=== PATIENT | female | born 1945 | race Caucasian/White ===

== ENCOUNTER → 2016-09-07 | Outpatient (CLI) | payer MEDICARE ==
--- NOTE | 2016-09-07 13:02 | XR ---
EXAMINATION TYPE: XR chest 2V DATE OF EXAM: 09/07/2016 11:34 AM COMPARISON: NONE TECHNIQUE: PA and lateral views submitted. HISTORY: Cough FINDINGS: The lungs are clear and there is no pneumothorax, pleural effusion, or focal pneumonia. Hypertrophic and degenerative change of the spine. Atherosclerotic change aorta. Hyperinflation suggests COPD. Bi apical pleural thickening. IMPRESSION: 1. No acute process. Correlate for COPD and pulmonary arterial hypertension.
== END | disposition home or self-care (01) ==
LOC: RADXRMAIN 11:03
PROVIDERS: ATTEND Family Medicine
DX: R05 Cough (principal); R91.8 Other nonspecific abnormal finding of lung field
CPT/HCPCS: 71020

== ENCOUNTER → 2018-01-10 | Outpatient (CLI) | payer MEDICARE ==
--- NOTE | 2018-01-10 11:12 | XR ---
EXAMINATION TYPE: XR Hip Complete RT DATE OF EXAM: 01/10/2018 COMPARISON: NONE HISTORY: Pain TECHNIQUE: 2 views submitted FINDINGS: There is no evidence of erosive change or acute fracture. There is axial narrowing of the joint space . Calcification along the femoral heads likely is related to chronic arthropathy or acetabular chroni c labral tear. IMPRESSION: 1. Arthropathy correlate for osteoarthritis. Follow-up MRI could BE obtained as clinically warranted. .
== END | disposition home or self-care (01) ==
LOC: RADUSMAIN 10:50
PROVIDERS: ATTEND Family Medicine
DX: M12.9 Arthropathy, unspecified (principal)
CPT/HCPCS: 73502

== ENCOUNTER → 2019-01-10 | Outpatient (CLI) | payer MEDICARE ==
--- NOTE | 2019-01-15 14:03 | MM ---
Reason for exam: screening (asymptomatic). Last mammogram was performed 11 years and 1 month ago. History: Patient is postmenopausal. Family history of breast cancer in aunt at age 86. Benign excisional biopsy of the right breast, 2002. Benign excisional biopsy of the right breast, 1995. Took estrogen for 14 years. Took progesterone for 14 years. Physical Findings: A clinical breast exam by your physician is recommended on an annual basis and results should be correlated with mammographic findings. MG 3D Screening Mammo W/Cad Bilateral CC and MLO view(s) were taken. Prior study comparison: July 02, 2015, mammogram. November 27, 2007, bilateral digital screening mammogram. The breast tissue is heterogeneously dense. This may lower the sensitivity of mammography. Nodular asymmetry middle depth superior left breast likely an island of fibroglandular tissue. 6 month follow up recommended. ASSESSMENT: Probably benign, BI-RAD 3 RECOMMENDATION: Follow-up diagnostic mammogram of the left breast in 6 months. SUDEEP
== END | disposition home or self-care (01) ==
LOC: RADMAMWWP 13:02
PROVIDERS: ATTEND Obstetrics & Gynecology
DX: Z12.31 Encounter for screening mammogram for malignant neoplasm of breast (principal)
CPT/HCPCS: 77063; 77067

== ENCOUNTER → 2019-08-06 | Outpatient (CLI) | payer MEDICARE ==
--- NOTE | 2019-08-07 08:24 | MM ---
Reason for exam: follow-up at short interval from prior study. Last mammogram was performed 7 months ago. History: Patient is postmenopausal. Family history of breast cancer in aunt at age 86. Benign excisional biopsy of the right breast, 2002. Benign excisional biopsy of the right breast, 1995. Took estrogen for 14 years. Took progesterone for 14 years. Physical Findings: Nurse did not find any significant physical abnormalities on exam. MG 3D Diag Mammo W/Cad LT CC and MLO view(s) were taken of the left breast. Prior study comparison: January 10, 2019, bilateral MG 3d screening mammo w/cad. July 02, 2015, mammogram. The breast tissue is heterogeneously dense. This may lower the sensitivity of mammography. Benign appearing calcifications in the left breast. No suspicious abnormality. Left superior asymmetry is similar to the prior. These results were verbally communicated with the patient and result sheet given to the patient on 08/06/19. ASSESSMENT: Probably benign, BI-RAD 3 RECOMMENDATION: Follow-up diagnostic mammogram of both breasts in 6 months.
== END | disposition home or self-care (01) ==
LOC: RADMAMWWP 15:18
PROVIDERS: ATTEND Obstetrics & Gynecology
DX: R92.8 Other abnormal and inconclusive findings on diagnostic imaging of breast (principal)
CPT/HCPCS: 77065; G0279; 77061

== ENCOUNTER → 2021-11-11 | Outpatient (CLI) | payer MEDICARE ==
--- NOTE | 2021-11-12 09:44 | CA ---
Transthoracic Echo Report Name: Sydney Oliveros Age: 76 Gender: F : 1945 Exam Date: 11/11/2021 14:04 Exam Location: [facility] Ht (in): 65 Wt (lb): 115 Ordering Physician: Melvin Choi DO Attending/Referring Phys: Survey Coordinator Caren San RDCS Procedure CPT: Indications: I20.9 Angina Cardiac Hx: Technical Quality: Contrast 1: Total Dose (mL): Contrast 2: Total Dose (mL): MEASUREMENTS (Male / Female) Normal Values 2D ECHO LV Diastolic Diameter PLAX 3.3 cm 4.2 - 5.9 / 3.9 - 5.3 cm LV Systolic Diameter PLAX 2.4 cm IVS Diastolic Thickness 1.0 cm 0.6 - 1.0 / 0.6 - 0.9 cm LVPW Diastolic Thickness 1.0 cm 0.6 - 1.0 / 0.6 - 0.9 cm LV Relative Wall Thickness 0.6 RV Internal Dim ED PLAX 2.7 cm LA Volume 21.0 cm 18 - 58 / 22 - 52 cm M-MODE Aortic Root Diameter MM 2.8 cm LA Systolic Diameter MM 3.0 cm LA Ao Ratio MM 1.1 AV Cusp Separation MM 1.8 cm DOPPLER AV Peak Velocity 120.3 cm/s AV Peak Gradient 5.8 mmHg LVOT Peak Velocity 115.3 cm/s LVOT Peak Gradient 5.3 mmHg MV Area PHT 2.7 cm Mitral E Point Velocity 67.5 cm/s Mitral A Point Velocity 72.4 cm/s Mitral E to A Ratio 0.9 MV Deceleration Time 284.2 ms MV E' Velocity 4.4 cm/s Mitral E to MV E' Ratio 15.5 TR Peak Velocity 236.0 cm/s TR Peak Gradient 22.3 mmHg Right Ventricular Systolic Press 26.8 mmHg FINDINGS Left Ventricle Mildly increased septal wall thickness. Mildly increased posterior wall thickness. Left ventricular ejection fraction is estimated at 55-60 % . normal left ventricular wall motion. Normal left ventricular diastolic filling pattern. Right Ventricle The right ventricle is normal in size and function. Right Atrium The right atrium is normal in size. Left Atrium The left atrium is normal in size. Mitral Valve Structurally normal mitral valve without significant stenosis or prolapse. Mild mitral regurgitation. Aortic Valve Structurally normal aortic valve without significant sclerosis or stenosis. There is no aortic regurgitation. Tricuspid Valve Structurally normal tricuspid valve without significant stenosis, mild tricuspid regurgitation. Pulmonary artery systolic pressure is normal. Pulmonic Valve Structurally normal pulmonic valve without significant stenosis. There is no pulmonic regurgitation. Pericardium Normal pericardium without effusion. Aorta Normal aortic root dimension. CONCLUSIONS #1. Mild concentric left ventricular hypertrophy. #2. Normal atrial sizes. #3. Mild mitral regurgitation and mild tricuspid regurgitation. #4. No pericardial effusion Previewed by: Dr. Cortney Cervantes MD (Electronically Signed) Final Date: 12 November 2021 09:43
== END | disposition home or self-care (01) ==
LOC: RADECHMAIN 13:53
PROVIDERS: ATTEND Family Medicine
DX: I08.1 Rheumatic disorders of both mitral and tricuspid valves (principal)
CPT/HCPCS: 93306

== ENCOUNTER → 2022-07-08 | Outpatient (CLI) | payer MEDICARE ==
--- NOTE | 2022-07-08 13:04 | XR ---
EXAMINATION TYPE: XR Hip Complete LT DATE OF EXAM: 07/08/2022 COMPARISON: NONE HISTORY: Pain TECHNIQUE: 2 views submitted FINDINGS: There is no evidence of erosive change or acute fracture. IMPRESSION: 1. No evidence of acute fracture or dislocation.
--- NOTE | 2022-07-08 13:08 | XR ---
EXAMINATION TYPE: XR femur LT DATE OF EXAM: 07/08/2022 COMPARISON: NONE HISTORY: Pain TECHNIQUE: 4 views submitted FINDINGS: Osseous structures intact. No fracture. No dislocation. Mild cystic change involving the he ad of the femur. There is arthropathy with chondrocalcinosis involving the knee. Vascular calcificati ons noted IMPRESSION: 1. No acute fracture or dislocation. Chondrocalcinosis and arthropathy of the knee joint correlate fo r osteoarthritis versus deposition arthropathy. 2. Question tiny cystic changes again noted involving the femoral head. Could be post arthritic. If t here is concern for early osteonecrosis correlate with MRI.
== END | disposition home or self-care (01) ==
LOC: RADXRMAIN 12:04
PROVIDERS: ATTEND Family Medicine
DX: M25.552 Pain in left hip (principal); M79.652 Pain in left thigh
CPT/HCPCS: 73502

== ENCOUNTER → 2022-08-11 | Outpatient (CLI) | payer MEDICARE ==
--- NOTE | 2022-08-12 04:36 | MR ---
EXAMINATION TYPE: MR hip LT wo con DATE OF EXAM: 08/11/2022 COMPARISON: None HISTORY: Left hip pain. Multiplanar multiecho imaging of the pelvis and left hip performed with no contrast. The proximal left femur appears intact. The acetabula appear intact. No evidence of pelvic mass. Blad issac distends smoothly. No sign of free fluid in the pelvis. The sacroiliac joints appear intact. Ther e is some subcutaneous edema around the abdomen and pelvis. There is increased subcutaneous fluid sig nal lateral to the greater trochanter of the left femur. There is some mild 3 x 1 cm area of fluid signal adjacent to the greater trochanter of the left femur . No evidence of avascular necrosis. No evidence of a soft tissue mass. IMPRESSION: There is some fluid signal adjacent to the greater trochanter of the left femur consistent with some trochanteric bursitis. Subcutaneous edema lateral to the left proximal femur and consistent with some bruising. No fracture seen. Mild subcutaneous edema around the lower abdomen and pelvis.
== END | disposition home or self-care (01) ==
LOC: RADMRIMAIN 14:27
PROVIDERS: ATTEND Orthopaedic Surgery
DX: M25.552 Pain in left hip (principal); R60.0 Localized edema

== ENCOUNTER → 2022-10-28 | Outpatient (CLI) | payer MEDICARE ==
--- NOTE | 2022-10-28 17:14 | BD ---
EXAMINATION TYPE: Axial Bone Density DATE OF EXAM: 10/28/2022 CLINICAL HISTORY: 77 years old Female. ICD-10 CODE: N95.1 POST MENOPAUSE, M85.88 OSTEOPENIA Height: 62.4 Weight: 116 FRAX RISK QUESTIONS: Glucocorticoids (More than 3mos): yes (Ex: prednisone, prednisolone, methylprednisolone, dexamethasone, and hydrocortisone). Secondary Osteoporosis: yes 3. Menopause before 45: yes, at 39 RISK FACTORS HISTORY OF: Family History of Osteoporosis: yes, brother, no hip fx Postmenopausal woman: yes, at age 39 yrs old natural Take estrogen and/or progesterone medications: yes, for about 10 yrs in the past Lost more than 2 inches in height since high school: yes Frequent falls: a bit unsteady Hyperparathyroidism: no Adrenal Insufficiency: no MEDICATIONS: Prednisone or other steroids: yes, for bursitis lt hip, on and off for pain Thyroid Medications: yes, synthroid for many yrs Osteoporosis Medications: in the past, for yrs, nothing now Additional Medications: anti seizure meds, vit d3, Additional History: Parkinson's disease, RLS, EXAM MEASUREMENTS: Bone mineral densitometry was performed using the [employer] System. Bone mineral density as measured about the Lumbar spine is: ----- L1-L4(G/cm2): 0.900 T Score Values are as follows: ----- L1: -1.8 ----- L2: -2.2 ----- L3: -2.4 ----- L4: -2.9 ----- L1-L4: -2.3 Z Score Values are as follows: ----- L1: 0.4 ----- L2: 0.0 ----- L3: -0.2 ----- L4: -0.7 ----- L1-L4: -0.1 Bone mineral density has: Decreased -8.5% since study of: 02.11.2010 Bone mineral density about the R hip (g/cm2): 0.706 Bone mineral density about the L hip (g/cm2): 0.733 T Score values are as follows: -----R Neck: -2.4 -----L Neck: -2.3 -----R Total: -2.4 -----L Total: -2.2 Z Score values are as follows: -----R Neck: 0.0 -----L Neck: 0.0 -----R Total: -0.2 -----L Total: 0.0 Bone mineral density has: Decreased -10.6% since study of: 02.11.2010 FRAX%s: The graph provided illustrates a 23.4% chance for a major osteoporotic fx and a 9.2% chance f or the hips probability for fx in 10 years time. IMPRESSION: Osteopenia (T Score between -2.5 and -1). However, note that measurements are bordering on osteoporos is. There is slightly increased risk of fracture and the patient may be considered for treatment. Re-Screen 2-5 years. NOTE: T-SCORE=SD OF THE YOUNG ADULT MEAN.
--- NOTE | 2022-10-29 08:05 | MM ---
Reason for Exam: Screening (asymptomatic). Last mammogram was performed 3 year(s) and 10 month(s) ago. Patient History: Menarche at age 10. First Full-Term at age 22. Postmenopausal. Estrogen for 14 years until age 61. Progesterone for 14 years until age 61. 2002, Benign Excisional Biopsy on the right side. 1995, Benign Excisional Biopsy on the right side. Maternal aunt had breast cancer, age 86. Risk Values: Devorah 5 year model risk: 2.5%. NCI Lifetime model risk: 4.5%. Prior Study Comparison: 07/02/2015 Screening Mammogram, Unknown. 01/10/2019 Bilateral Screening Mammogram, [facility]. 08/06/2019 Left Diagnostic Mammogram, [facility]. Tissue Density: The breast tissue is heterogeneously dense. This may lower the sensitivity of mammography. Findings: Analyzed By CAD. There is no suspicious group of microcalcifications or new suspicious mass in either breast. Stable left breast superior asymmetry. Benign-appearing calcifications within both breasts. Overall Assessment: Benign, BI-RAD 2 Management: Screening Mammogram of both breasts in 1 year. A clinical breast exam by your physician is recommended on an annual basis and results should be correlated with mammographic findings. Electronically signed and approved by: Jean Brooke D.O.
== END | disposition home or self-care (01) ==
LOC: RADMAMWWP 12:33
PROVIDERS: ATTEND Obstetrics & Gynecology
DX: Z12.31 Encounter for screening mammogram for malignant neoplasm of breast (principal); M81.0 Age-related osteoporosis without current pathological fracture; M85.89 Other specified disorders of bone density and structure, multiple sites; Z78.0 Asymptomatic menopausal state; Z80.3 Family history of malignant neoplasm of breast
CPT/HCPCS: 77063; 77067; 77080

== ENCOUNTER → 2024-10-11 | Outpatient (CLI) | payer MEDICARE ==
--- NOTE | 2024-10-11 14:26 | MM ---
Reason for Exam: Screening (asymptomatic). Last mammogram was performed 1 year(s) and 11 month(s) ago. Patient History: Menarche at age 10. First Full-Term at age 22. Postmenopausal. Estrogen for 14 years until age 61. Progesterone for 14 years until age 61. 2002, Benign Excisional Biopsy on the right side. 1995, Benign Excisional Biopsy on the right side. Maternal aunt had breast cancer, age 86. Risk Values: Devorah 5 year model risk: 2.4%. NCI Lifetime model risk: 3.7%. Prior Study Comparison: 01/10/2019 Bilateral Screening Mammogram, [facility]. 08/06/2019 Left Diagnostic Mammogram, [facility]. 10/28/2022 Bilateral MG 3D screening mammo w/cad, [facility]. Tissue Density: The breasts are heterogeneously dense, which may obscure small masses. Findings: Analyzed By CAD. Benign-appearing vascular calcification bilaterally is redemonstrated. There is no suspicious new group of microcalcifications or new suspicious mass in either breast. Overall Assessment: Benign, BI-RAD 2 Management: Screening Mammogram of both breasts in 1 year. . Patient should continue monthly self-breast exams. A clinical breast exam by your physician is recommended on an annual basis. This exam should not preclude additional follow-up of suspicious palpable abnormalities. Note on Devorah scores and lifetime risk: 1. A Devorah score greater than 3% is considered moderate risk. If this is the case, consider specialist referral to assess eligibility for a risk reducing agent. 2. If overall lifetime risk for the development of breast cancer is 20% or higher, the patient may qualify for future screening with alternating mammogram and breast MRI. [facility], , 10/11/2024 2:23 PM. Electronically signed and approved by: Myron Mccoy M.D.
== END | disposition home or self-care (01) ==
LOC: RADMAMWWP 13:15
PROVIDERS: ATTEND Family Medicine
DX: Z12.31 Encounter for screening mammogram for malignant neoplasm of breast (principal); R92.333 Mammographic heterogeneous density, bilateral breasts; Z78.0 Asymptomatic menopausal state; Z80.3 Family history of malignant neoplasm of breast
CPT/HCPCS: 77063; 77067